=== PATIENT | female | born 1965 | race Asian ===

== ENCOUNTER 2025-04-08 14:25 | Emergency (ER) | payer BC ==
[2025-04-08 14:34] VITALS: BP 126/83; PULSE 70; RESP 16; TEMP 97.7; BMI 31.2
[2025-04-08] MEDS: SODIUM CHLORIDE 0.9% 1000 ML INFUS.BAG IV ONE (15:45)
[2025-04-08 15:48] LABS: ABSOLUTE IMMATURE GRANULOCYTES 0.01 x10^3/uL (0.0-0.031); BASOPHILS # 0.03 x10^3/uL (0.01-0.08); EOSINOPHIL % 1.4 % (0.7-5.8); EOSINOPHILS # 0.11 x10^3/uL (0.04-0.36); MCHC 31.5 g/dl (32.2-35.5); MEAN CELL VOLUME 85.9 fl (79.4-94.8); MEAN PLT VOLUME 9.8 fl (9.4-12.3); MONOCYTE # 0.30 x10^3/uL (0.24-0.86); MONOCYTE % 3.9 % (4.7-12.5); RDW 12.1 % (12.3-16.6)
[2025-04-08 16:36] LABS: GLUCOSE,RANDOM 106.0 mg/dL (74-106); TOT PROT 8.1 g/dl (6.4-8.2)
[2025-04-08 16:37] LABS: CO2 24.0 mmol/L (21-32)
[2025-04-08 16:39] LABS: ALK PHOS 69.0 U/L (40-150)
[2025-04-08 16:42] LABS: CREATININE 0.81 mg/dL (0.55-1.3); SGOT/AST 29.0 U/L (5-34); SGPT/ALT 22.0 U/L (0-55)
[2025-04-08 17:03] LABS: HCV DIAGNOSTIC IN-HOUSE W/RFLX NON-REACTIVE (NONREACTIVE)
[2025-04-08 17:04] LABS: HIV INTERPRETATION NEGATIVE (NEGATIVE)
[2025-04-08 19:13] LABS: URINE APPEARANCE CLEAR; URINE BILIRUBIN NEGATIVE (NEGATIVE); URINE COLOR YELLOW; URINE GLUCOSE (UA) NEGATIVE (NEGATIVE); URINE KETONE NEGATIVE (NEGATIVE); URINE NITRITE NEGATIVE (NEGATIVE); URINE PROTEIN NEGATIVE (NEGATIVE); URINE UROBILINOGEN 0.2 mg/dL (0.2-1.0)
[2025-04-08 19:14] LABS: URINE LEUK ESTERASE NEGATIVE (NEGATIVE)
== END 2025-04-08 19:55 | disposition home or self-care (01) ==
LOC: JER 14:25
DX: R42 Dizziness and giddiness (principal); B34.9 Viral infection, unspecified; R53.1 Weakness; R51.9 Headache, unspecified; R11.0 Nausea; R53.81 Other malaise; K59.00 Constipation, unspecified
CPT/HCPCS: 36415; 71046-TC-FY; 80053; 81003; 82962; 83735; 84443; 84484; 85025; 86803; 87389; 87637-QW; 93005; 93010; 99285-25